=== PATIENT | male | born 1935 | race Asian ===

== ENCOUNTER 2022-07-29 09:36 | Inpatient (IN) | payer OTHER, MEDICAID ==
[~2022-07-29] VITALS: Ht 167.6 cm; Wt 57.2 kg
[2022-07-29] VITALS (10 sets, daily range): BP systolic 60–146
--- NOTE | 2022-07-29 09:36 | NUR ---
Patient BIB [facility] 62, c/c ALOC, febrile in facilty ([facility]) patient is none verbal, patient is hypotensive, tachycardiac on monitor with oxygen saturation reading 84%, patient placed onto 100% NRMD Lilly at bedside
--- NOTE | 2022-07-29 09:37 | NUR ---
ER at bedside examining patient.
--- NOTE | 2022-07-29 09:38 | NUR ---
Patient is a DNR with selective treatment
--- NOTE | 2022-07-29 09:39 | NUR ---
Patient placed onto BIPAP 100% FIO2
[2022-07-29] MEDS ORDERED: NACL 0.9% 2,000 ML IV ONE (09:45)
--- NOTE | 2022-07-29 09:46 | NUR ---
COVID-19 AND MRSA SWABS OBTAINED, LABELED SENT TO THE LAB.
--- NOTE | 2022-07-29 09:47 | NUR ---
22G PIV Right Hand, 20G PIV left hand, 22G PIV right forearm placed, fluids running per MD order.
[2022-07-29] MEDS ORDERED: DONE10TA44 PO (09:49)
[2022-07-29] MEDS ORDERED: ACET-73 PO (09:49)
[2022-07-29] MEDS ORDERED: DOCU-144 PO (09:51)
[2022-07-29] MEDS ORDERED: LOSA50TA3 PO (09:57)
[2022-07-29] MEDS ORDERED: FERR220S6 PO (09:57)
[2022-07-29] MEDS ORDERED: CRAN450T9 PO (09:57)
[2022-07-29] MEDS ORDERED: LIP10 PO (10:00)
[2022-07-29] MEDS ORDERED: TAMS-11 PO (10:00)
[2022-07-29] MEDS ORDERED: LYR25 PO (10:00)
--- NOTE | 2022-07-29 10:00 | NUR ---
Medication reconcilliation complete per MAR provided by Hutner Santoyo.
--- NOTE | 2022-07-29 10:01 | NUR ---
Labs drawn and brought to lab
[2022-07-29] MEDS ORDERED: MEMA5TAB PO (10:07)
[2022-07-29] MEDS ORDERED: AMLO2.5T2 PO (10:07)
[2022-07-29] MEDS ORDERED: FINA5TAB3 PO (10:08)
[2022-07-29] MEDS ORDERED: LEVO150T PO (10:09)
[2022-07-29] MEDS ORDERED: TRAM50TA2 PO (10:09)
--- NOTE | 2022-07-29 10:19 | NUR ---
Febrile 100.7
--- NOTE | 2022-07-29 10:20 | NUR ---
Right IJ 18G placed by
--- NOTE | 2022-07-29 10:24 | NUR ---
16F Rey catheter placed.
[2022-07-29] MEDS ORDERED: NOREPINEPHRINE BITARTRATE 4 MG in NS 246 ML IV ONE (10:30)
--- NOTE | 2022-07-29 10:30 | NUR ---
Urine sent to lab
[2022-07-29 10:53] LABS: BILIRUBIN,URINE 1+ (NEGATIVE); CLARITY/URINE CLOUDY (CLEAR); COLOR,URINE YELLOW (YELLOW); GLUCOSE,URINE TRACE (NEGATIVE); KETONES,URINE TRACE (NEGATIVE); LEUKOCYTE ESTERASE ,URINE NEGATIVE (NEGATIVE); NITRITE, URINE NEGATIVE (NEGATIVE); PROTEIN URINE 1+ (NEGATIVE)
[2022-07-29 10:54] LABS: BLOOD, URINE TRACE (NEGATIVE)
--- NOTE | 2022-07-29 11:55 | NUR ---
RT NOTES 1155 Brought pt to CTScan via 15L NRB, pt saturating 92%. pt tolerated transport well. will cont to monitor pt. no incident happened.
--- NOTE | 2022-07-29 11:56 | NUR ---
Patient taken to CT for imaging
[2022-07-29 12:04] LABS: BASOPHILS % (AUTO) 0.4 % (0.0-2.0); EOSINOPHILS % (AUTO) 0.2 % (0.0-4.0); HEMATOCRIT 38.9 % (36-54); LYMPHOCYTES # (AUTO) 2.5 K/uL (1.0-5.5); LYMPHOCYTES % (AUTO) 19.8 % (20.5-51.5); MEAN CORPUSCULAR VOLUME 76 fL (79.0-98.0); MONOCYTES % (AUTO) 7.6 % (1.7-9.3); NEUTROPHILS # (AUTO) 9.1 K/uL (1.8-7.7); PLATELET COUNT (AUTO) 185 K/uL (130-430); RED BLOOD CELL COUNT(AUTO) 5.13 MIL/uL (4.2-6.2); RED CELL DISTRIBUTION WIDTH 16.1 % (9.0-15.0); WHITE BLOOD COUNT (AUTO) 12.7 K/uL (4.8-10.8)
[2022-07-29 12:13] LABS: BACTERIA,URINE FEW /HPF (None Seen); WBC,URINE 0-3 /HPF (0-3)
[2022-07-29 12:38] LABS: INR 1.1 (0.80-1.20)
[2022-07-29 12:40] LABS: ANION GAP 8 (5-15); CALCIUM 9.4 mg/dL (8.4-11.0); CHLORIDE 112 mmol/L (98-107); CREATININE 3.96 mg/dL (0.55-1.30); GLUCOSE 134 mg/dL (70-99); POTASSIUM 4.4 mmol/L (3.5-5.1); UREA NITROGEN, BLOOD 43 mg/dL (8-21)
[2022-07-29 12:41] LABS: C-REACTIVE PROTEIN QUANT 5.6 mg/dL (0-0.5)
[2022-07-29 12:44] LABS: ALANINE AMINOTRANSFERASE 1 U/L (12-78); ALBUMIN 2.9 g/dL (3.4-4.8); ASPARTATE AMINOTRANSFERASE 13 U/L (10-37); C-REACTIVE PROTEIN QUANT 5.6 mg/dL (0-0.5); TOTAL BILIRUBIN 0.9 mg/dL (0.0-1.0)
[2022-07-29 12:46] LABS: ACETAMINOPHEN < 1 ug/mL (1-30); ALCOHOL, BLOOD < 3 mg/dL (<10)
[2022-07-29] MEDS ORDERED: INSULIN REGULAR, HUMAN 10 UNITS/0.1 ML, 3 ML VIAL IVP ONE (13:00)
--- NOTE | 2022-07-29 13:06 | NUR ---
Admit bed requested Patient will be admitted to care of . Admitted to TELE unit. Diagnosis ARF Inpatient (Yes or No) Y Observation (Yes or No) N Orientation concerns or request close to nursing station (Yes or No) N Covid Status PENDING On vent or bipap N Isolation requirements N Needs a sitter N From Home (Yes or if No enter name of facility) Y Requires Dialysis (Yes or No) N Med Rec Completed (Yes of No) Y Addendum: 07/29/22 at 1400 by [id number] NEG COVID TEST
[2022-07-29] MEDS ORDERED: NOREPINEPHRINE 4 MG/4 ML VIAL IV ONE (13:34)
--- NOTE | 2022-07-29 13:38 | NUR ---
Daughter at bedside
[2022-07-29] MEDS: D5/0.45 NS 1,000 ML IV SCH (13:40)
[2022-07-29] MEDS ORDERED: PIPERACILLIN/TAZO 3.375/DEX-IS 50 ML IV SCH (13:45)
[2022-07-29 13:53] LABS: ACETONE, SERUM NEGATIVE (NEGATIVE)
--- NOTE | 2022-07-29 14:00 | NUR ---
Dr. Palma at bedside
--- NOTE | 2022-07-29 14:45 | NUR ---
TRANSFERRED PATIENT TO 125 A FROM ER. PATIENT ON NRB 15LPM, FIO2 100% DURING TRANSPORT. PATIENT BACK ON BIPAP SETTINGS WITH 12/05 16, FIO2 100. SPO2 95%, HR 106. NO RESPIRATORY DISTRESS NOTED.
--- NOTE | 2022-07-29 14:46 | NUR ---
TO ICU RECEIVED PT IN ROOM 125-A, VIA GURNEY, TRANSFERRED TO BED, R.T AT BEDSIDE, PT ON O2 VIA BIPAP, LEVOPHED DRIP INFUSING THRU RIGHT SIDE OF THE NECK EXTERNAL CATHETER, SALINE LOCKS IN RIGHT HAND AND LEFT HAND. GARCIA CATHETER DRAINING [place] COLOR URINE, SCANTY OUTPUT, DISPOSABLE DIAPER REMOVED.
--- NOTE | 2022-07-29 14:47 | NUR ---
Dr. Rios at bedside
--- NOTE | 2022-07-29 14:48 | NUR ---
Patient will be admitted to care of Dr. Can. Admitted to unit. Will go to room . Belongings list completed. Complete and up to date summary report printed. SBAR report to be given at bedside with opportunity for questions.
[2022-07-29] MEDS: PIPERACILLIN/TAZOBACTAM 2.25 GM/ DEX-IS 50 ML PREMIX IV SCH ×2 (15:00→20:57)
[2022-07-29] MEDS ORDERED: NOREPINEPHRINE BITARTRATE 8 MG in D5W 242 ML IV PRN (16:00)
[2022-07-29] MEDS ORDERED: MORPHINE SULFATE IN 0.9 % NACL 100 ML IV PRN (16:15)
[2022-07-29] MEDS ORDERED: NALOXONE HCL 0.4 MG/ML AMP (NARCAN) IVP PRN ×3 (16:15→20:45)
[2022-07-29] MEDS ORDERED: LORazepam 2 MG/ML VIAL IM PRN (16:15)
--- NOTE | 2022-07-29 16:35 | NUR ---
CODE STATUS PT'S DAUGHTER MICHELLE AND PT'S AT BEDSIDE, PLAN OF CARE DISCUSSED. THE DAUGHTER STATED THAT THEY DESIRED TO LEAVE THEIR FATHER UNDER COMFORT CARE. SHE MENTIONED THAT HER SISTER WHO IS A HEALTH CARE WORKER TALKED ABOUT THIS ALREADY. THEY DECLINED TREATMENTS SUCH INTUBATION IF HE BEGINS TO FAIL THE CURRENT TREATMENT. SHE EXPRESSED DNR.
[2022-07-29 19:54] LABS: ACETONE, SERUM NEGATIVE (NEGATIVE)
[2022-07-29] MEDS ORDERED: ACETAMINOPHEN 325 MG TABLET PO PRN ×2 (20:45→21:00)
[2022-07-29] MEDS ORDERED: ONDANSETRON HCL 4 MG/2 ML VIAL IVP PRN (20:45)
[2022-07-29] MEDS ORDERED: DOCUSATE SODIUM 100 MG CAPSULE PO PRN (20:45)
[2022-07-29] MEDS ORDERED: MORPHINE 2 MG/ML INJ. SYRINGE IVP PRN ×2 (20:45)
[2022-07-29] MEDS ORDERED: LORazepam 2 MG/ML VIAL IVP PRN (20:45)
[2022-07-29] MEDS ORDERED: ZOLPIDEM TARTRATE 5 MG TABLET PO PRN (20:45)
[2022-07-29] MEDS ORDERED: MAGNESIUM SULFATE 50 ML IV PRN (20:45)
[2022-07-29] MEDS ORDERED: MUPIROCIN 2% TOPICAL OINTMENT 22 GM NS PRN (20:45)
[2022-07-29] MEDS ORDERED: POTASSIUM CHLORIDE 20 MEQ TAB.PRT.SR PO PRN (20:45)
[2022-07-29] MEDS ORDERED: HEPARIN SODIUM,PORCINE 5,000 UNITS/ML VIAL SUBCUT SCH (21:00)
[2022-07-30] VITALS: BP_SYST 110
[2022-07-30 01:00] VITALS: BP_SYST 113
[2022-07-30] MEDS: D5/0.45 NS 1,000 ML IV SCH (01:45)
[2022-07-30 02:00] VITALS: BP_SYST 82
[2022-07-30 03:00] VITALS: BP_SYST 103
[2022-07-30] MEDS ORDERED: NOREPINEPHRINE 4 MG/4 ML VIAL IV ONE (03:22)
[2022-07-30] MEDS: PIPERACILLIN/TAZOBACTAM 2.25 GM/ DEX-IS 50 ML PREMIX IV SCH (03:26)
[2022-07-30 04:00] VITALS: BP_SYST 115
[2022-07-30 05:00] VITALS: BP_SYST 70
--- NOTE | 2022-07-30 05:30 | NUR ---
MORPHINE DRIP STARTED AT 2MG/HR PER MD ORDER AND FAMILY REQUEST. BLOOD PREESURE IS LOW WITH LEVOPHED AT 0.9MCG/KG/MIN. FAMILY AT THE BEDSIDE. 0620 BLOOD PRESSURE NOT APPRECIATED ANYMORE, AGONAL RHYTHM OBSERVED. WILL CONTINUE TO MONITOR. REASSURANCE GIVEN TO PATIENT'S DAUGHTER.
[2022-07-30 07:22] LABS: BASOPHILS # (AUTO) 0.1 K/uL (0.0-0.2); BASOPHILS % (AUTO) 0.4 % (0.0-2.0); HEMATOCRIT 36.4 % (36-54); LYMPHOCYTES # (AUTO) 2.5 K/uL (1.0-5.5); LYMPHOCYTES % (AUTO) 11.4 % (20.5-51.5); MEAN CORPUSCULAR VOLUME 77 fL (79.0-98.0); MONOCYTES # (AUTO) 1.7 K/uL (0.0-1.0); MONOCYTES % (AUTO) 7.5 % (1.7-9.3); NEUTROPHILS # (AUTO) 17.9 K/uL (1.8-7.7); PLATELET COUNT (AUTO) 221 K/uL (130-430); RED CELL DISTRIBUTION WIDTH 16.4 % (9.0-15.0); WHITE BLOOD COUNT (AUTO) 22.2 K/uL (4.8-10.8)
[2022-07-30 07:46] LABS: ALANINE AMINOTRANSFERASE 5 U/L (12-78); ALBUMIN 2.3 g/dL (3.4-4.8); ANION GAP 9 (5-15); ASPARTATE AMINOTRANSFERASE 42 U/L (10-37); CALCIUM 8.9 mg/dL (8.4-11.0); CHLORIDE 112 mmol/L (98-107); CREATININE 4.82 mg/dL (0.55-1.30); GLUCOSE 145 mg/dL (70-99); UREA NITROGEN, BLOOD 53 mg/dL (8-21)
--- NOTE | 2022-07-30 07:50 | NUR ---
RECEIVED PT , FAMILY AT BEDSIDE. PT PER REPORT IS ACTIVELY DYING, NO MORE BP, PULSE NO PALPATED,THOUGH PT STILL SHOW SLOW HEARTBEAT ON THE MONITOR. DR PATEL AND DR KHAN SAW PT AND TALKED TO FAMILY. PT APPEAR COMFORTABLE WITH MS RUNNING AT 2 MG.
--- NOTE | 2022-07-30 08:19 | NUR ---
RECEIVED CALL FROM [employer] THAT PT HAS NO MORE HEARTBEAT ON THE MONITOR.
--- NOTE | 2022-07-30 08:30 | NUR ---
PT HAS NO PULSE, NO HEARTBEAT ON AUSCULTATION, NO SPONTANEOUS BREATHING. PUPILE FIXED AND NO REACTION TO LIGHT, PT . [facility] CALLED.
--- NOTE | 2022-07-30 08:30 | NUR ---
PT UNRESPONSIVE TO PAINFUL/ TACTILE STIMULI, MOTIONLESS, PUPILS FIXED AND DILATED, NO RISING AND FALLING OF THE CHEST WALL. PULSES NOT DECTECTABLE VIA DOPPLER MACHINE AND FROM PALPATION, BLOOD PRESSURE UNOBTAINABLE, EKG ASYSTOLE.
--- NOTE | 2022-07-30 08:59 | NUR ---
REPORTED TO CORONERS. PER [employer] REP THIS IS NOT A CORONERS CASE.
[2022-07-30 14:36] LABS: NEUTROPHILS % (AUTO) 80.7 % (40.0-70.0)
== END 2022-07-30 08:19 | DRG 871 ==
LOC: SED 09:36 → STU 13:01 → SIC 14:48
PROVIDERS: ADMIT General Practice; ATTEND General Practice
PROC: 5A09357 Assistance with Respiratory Ventilation, Less than 24 Consecutive Hours, Continuous Positive Airway Pressure (ICD-10-PCS; principal; 2022-07-29)
DX: A41.9 Sepsis, unspecified organism (principal); G93.41 Metabolic encephalopathy; J18.9 Pneumonia, unspecified organism; J96.01 Acute respiratory failure with hypoxia; R65.21 Severe sepsis with septic shock; N17.0 Acute kidney failure with tubular necrosis; E44.0 Moderate protein-calorie malnutrition; G30.9 Alzheimer's disease, unspecified; F02.80 Dementia in other diseases classified elsewhere, unspecified severity, without behavioral disturbance, psychotic disturbance, mood disturbance, and anxiety; E78.5 Hyperlipidemia, unspecified; N40.0 Benign prostatic hyperplasia without lower urinary tract symptoms; D64.9 Anemia, unspecified; Z20.822 Contact with and (suspected) exposure to COVID-19; Z66 Do not resuscitate; I10 Essential (primary) hypertension; Z68.20 Body mass index [BMI] 20.0-20.9, adult; Z51.5 Encounter for palliative care
CPT/HCPCS: 36415; 70450-TC; 71045; 76376; 80053; 81000; 82009; 82140; 83036; 83605; 83735; 84484; 85025; 85610-TC; 85730-TC; 86140; 87040; 87086; 87186-TC; 94660; 99291; 99292; G0480; G0481; G0482; J1644; J2270; J2543